=== PATIENT | female | born 1940 | race Caucasian/White ===

== ENCOUNTER 2017-01-30 15:21 | Inpatient (IN) | payer MEDICARE ==
[~2017-01-30] VITALS: Ht 172.7 cm; Wt 86.1 kg
[2017-02-11] MEDS ORDERED: GENTAMICIN SULFATE 80 MG/2 ML VIAL ONE (06:14)
[2017-02-11] MEDS ORDERED: ceFAZolin 2 GM PREMIX 50 ML IV SCH (06:45)
[2017-02-11] MEDS: POVIDONE IODINE 7.5% SCRUB 118 ML BOTTLE TOP SCH (06:45)
[2017-02-11] MEDS ORDERED: SODIUM CHLORID 0.9% 500 ML IV SCH (06:45)
[2017-02-11] MEDS ORDERED: METOPROLOL TARTRATE 25 MG TAB PO PRN (06:45)
[2017-02-11] MEDS ORDERED: INSULIN HUMAN REGULAR 1,000 UNITS/10 ML VIAL SQ PRN (06:45)
[2017-02-11] MEDS: LACTATED RINGER'S 1000 ML IV SCH (07:00)
[2017-02-11] MEDS ORDERED: CELE200C PO (07:02)
[2017-02-11] MEDS ORDERED: PREM0.3T2 PO (07:02)
[2017-02-11] MEDS ORDERED: DIAZ5 PO (07:02)
[2017-02-11] MEDS ORDERED: ASPI1TAB69 PO (07:02)
[2017-02-11] MEDS ORDERED: BYST5TAB2 PO (07:02)
[2017-02-11] MEDS ORDERED: SIMV20TA PO (07:02)
[2017-02-11] MEDS ORDERED: AMBI10TA PO (07:02)
[2017-02-11 07:04] VITALS: BP 153/86; PULSE 66; RESP 16; TEMP 97.7; O2SAT 98
[2017-02-11] MEDS ORDERED: ACETAMINOPHEN 1000 MG/100 ML VIAL IV ONE (07:45)
[2017-02-11] MEDS ORDERED: MIDAZOLAM HCL 5 MG/5 ML VIAL ONE (07:45)
[2017-02-11] MEDS ORDERED: FAMOTIDINE 20 MG/2 ML VIAL ONE (07:45)
[2017-02-11] MEDS ORDERED: fentaNYL CITRATE 250 MCG/5 ML AMP ONE (07:46)
[2017-02-11] MEDS ORDERED: DEXAMETHASONE SOD PHOS 4 MG/ML VIAL ONE (08:23)
[2017-02-11] MEDS ORDERED: BUPIVACAINE HCL PF 0.5% 30 ML VIAL NB ONE (08:41)
[2017-02-11] MEDS ORDERED: NEBIVOLOL 10 MG TAB PO ONE (11:45)
[2017-02-11] MEDS ORDERED: MORPHINE SULFATE 4 MG/ML INJ IV PUSH PRN (11:45)
[2017-02-11] MEDS ORDERED: SODIUM CHLORIDE 0.9% FLUSH 5 ML FLUSH IVF PRN (11:45)
[2017-02-11] MEDS ORDERED: HYDR-3516 PO (12:31)
--- NOTE | 2017-02-11 13:05 | RADRPT ---
EXAM DATE/TIME: 02/11/2017 11:31 [place] COMPARISON: No previous studies available for comparison. INDICATIONS: Post-Op right shoulder surgery. MEDICAL HISTORY: None. SURGICAL HISTORY: None. ENCOUNTER: Initial ACUITY: 1 day PAIN SCORE: 2/10 LOCATION: Anterior right shoulder. FINDINGS: There is a right shoulder prosthesis in place. This appears well placed. Skin chelsey are seen. Th ere does appear to be some remodeling of the glenoid. Soft tissue calcifications are present. CONCLUSION: Successful placement of a humeral prosthesis at the shoulder. Earl Kumar MD on February 11, 2017 at 12:57 Board Certified Radiologist. This report was verified electronically.
[2017-02-11] MEDS ORDERED: NEOSTIGMINE 3 MG/3 ML SYR IV ONE (13:33)
[2017-02-11] MEDS ORDERED: LACTATED RINGER'S 1000 ML INJ 1,000 ML IV ONE (13:33)
[2017-02-11] MEDS ORDERED: PROPOFOL 200 MG/20 ML AMP IV ONE (13:33)
[2017-02-11] MEDS ORDERED: ONDANSETRON HCL 4 MG/2 ML VIAL IV PUSH ONE (13:33)
--- NOTE | 2017-02-11 14:42 | EKG ---
Date Performed: 02/11/2017 Time Performed: 06:52:19 PTAGE: 76 years EKG: Sinus rhythm NORMAL ECG NO PREVIOUS TRACING DOCTOR: Sidney Shaver Interpretating Date/Time 02/11/2017 14:39:10
--- NOTE | 2017-02-11 15:45 | PD.CONS ---
[facility] By [facility] Henry Reason for Consult Medical management Primary Care Physician Non-Staff Diagnoses: (1) Osteoarthritis (2) Anxiety (3) Heart palpitations (4) Hyperlipidemia History of Present Illness 76-year-old female with a medical history significant for heart palpitations, hyperlipidemia, anxiety, osteoarthritis admitted to the hospital for right shoulder arthroplasty. The patient is seen in the recovery unit. She reports having significant problems with the right shoulder over the past 6 month. She has been using Lortab twice daily. Regarding heart palpitations. She reports this has been stable on Bystolic. It is reportedly related to her high stress environment in the [employer] business. She denies episode of shortness of breath or chest pain. She does have anxiety for which she takes Valium as needed. She denies depression. Review of Systems Musculoskeletal: COMPLAINS OF: Joint pain, Stiffness Past Family Social History Allergies: Coded Allergies: No Known Allergies (Unverified , 02/11/17) Past Medical History heart palpitations, hyperlipidemia, anxiety, osteoarthritis, insomnia. Past Surgical History Right ankle surgery after skiing accident. Right shoulder arthroplasty Reported Medications Reported Meds & Active Scripts Active Hydrocodone-Acetaminophen 5-325 mg Tab 1 Tab PO Q4H PRN Reported Valium (Diazepam) 5 Mg Tab 5 Mg PO BID PRN Celebrex (Celecoxib) 200 Mg Cap 200 Mg PO BID Aspirin 81 Mg Tabdr 81 Mg PO DAILY Prempro Blister Pack (Estrogens Conj/Medroxyprogest Acet) 0.3-1.5 Mg Tab 1 Tab PO DAILY Simvastatin 20 Mg Tab 20 Mg PO DAILY Bystolic (Nebivolol) 5 Mg Tab 5 Mg PO DAILY Ambien (Zolpidem Tartrate) 10 Mg Tab 10 Mg PO HS PRN Family History Mother from complications of lung cancer Father of a heart attack Social History Patient denies tobacco use. Admits to 1-2 glasses of wine daily. Denies illicit drugs. Physical Exam Vital Signs Vital Signs Date Time Temp Pulse Resp B/P Pulse Ox O2 Delivery O2 Flow Rate FiO2 02/11/17 14:15 84 22 91/60 97 Room Air 02/11/17 14:00 83 22 91/55 94 Room Air 02/11/17 13:45 78 22 89/63 95 Room Air 02/11/17 13:30 76 22 102/63 96 Room Air 02/11/17 13:15 72 22 97/65 94 Room Air 02/11/17 13:00 76 22 92/57 97 Room Air 02/11/17 12:45 74 22 95/67 95 Room Air 02/11/17 12:30 75 22 116/62 97 Room Air 02/11/17 12:15 70 22 110/56 97 Room Air 02/11/17 12:00 69 22 132/68 96 Room Air 02/11/17 11:45 83 22 108/75 95 Room Air 02/11/17 11:33 97.6 60 22 131/77 98 Simple Mask 6 02/11/17 07:04 97.7 66 16 153/86 98 Physical Exam GENERAL: This is a well-nourished, well-developed patient, in no apparent distress. SKIN: No rashes, ecchymoses or lesions. Cool and dry. HEAD: Atraumatic. Normocephalic. EYES: Pupils equal round and reactive. Extraocular motions intact. ENT: Nose without drainage or septal hematoma. Throat without erythema, tonsillar hypertrophy or exudate. Uvula midline. Airway patent. NECK: Trachea midline. No JVD or lymphadenopathy. Supple, nontender, no meningeal signs. CARDIOVASCULAR: Regular rate and rhythm without murmurs, gallops, or rubs. RESPIRATORY: Clear to auscultation. Breath sounds equal bilaterally. No wheezes , rales, or rhonchi. GASTROINTESTINAL: Abdomen soft, non-tender, nondistended. No hepato-splenomegaly , or palpable masses. No guarding. MUSCULOSKELETAL: Right shoulder is in the sling. Neurovascularly intact at the fingers. NEUROLOGICAL: Awake and alert. Cranial nerves II through XII intact. Motor and sensory grossly within normal limits. Five out of 5 muscle strength in all major muscle groups. Normal speech. Assessment and Plan Problem List: (1) Osteoarthritis ICD Code: M19.90 Status: Acute Plan: Right shoulder, status post total right shoulder arthroplasty. Postop care per orthopedics. - Patient requested pain medication prior to therapy. Lortab ordered to use prior to therapy. (2) Anxiety ICD Code: F41.9 Status: Acute Plan: Continue as needed Valium. (3) Heart palpitations ICD Code: R00.2 Status: Acute Plan: Controlled with Bystolic. Continue same dose. (4) Hyperlipidemia ICD Code: E78.5 Status: Acute Plan: Continue statin (5) Insomnia ICD Code: G47.00 Status: Acute Plan: Continue Ambien as needed at night. (6) Post menopausal syndrome ICD Code: N95.1 Status: Acute Plan: Continue home dose hormone supplements. Assessment and Plan Thank you for allowing me to participate in the care of Mrs. Byrnes. Will continue to follow. Analia Hicks MD Feb 11, 2017 15:45
[2017-02-11] MEDS ORDERED: ACETAMINOPHEN/HYDROcodone 325 MG/7.5 MG TAB PO PRN (16:00)
[2017-02-11] MEDS ORDERED: DIAZEPAM 5 MG TAB PO PRN (16:00)
[2017-02-11 18:35] VITALS: BP 83/54; PULSE 114; RESP 18; TEMP 96.9; O2SAT 96
[2017-02-11 19:05] VITALS: BP 101/66; PULSE 86; RESP 18; O2SAT 96
[2017-02-11 19:59] VITALS: O2SAT 96
[2017-02-11 20:00] VITALS: BP 104/85
[2017-02-11] MEDS: ACETAMINOPHEN/HYDROcodone 325 MG/5 MG TAB PO PRN (20:14)
[2017-02-11] MEDS ORDERED: ZOLPIDEM TARTRATE 10 MG TAB PO SCH (21:00)
[2017-02-11] MEDS: SODIUM CHLORIDE 0.9% FLUSH 5 ML FLUSH IVF SCH (21:36)
[2017-02-11 23:00] VITALS: BP 94/74; PULSE 97; RESP 18; TEMP 97; O2SAT 96
[2017-02-12] VITALS (16 sets, daily range): BP systolic 82–111; BP diastolic 45–69; PULSE 18–93; RESP 17–20; TEMP 96.8–99.3; O2SAT 94–97
[2017-02-12] MEDS: ACETAMINOPHEN/HYDROcodone 325 MG/5 MG TAB PO PRN ×3 (00:23→21:17)
[2017-02-12] MEDS ORDERED: KETOROLAC TROMETHAMINE 30 MG/ML (IVP) VIAL IV PUSH ONE (06:00)
[2017-02-12] MEDS ORDERED: SODIUM CHLORID 0.9% 500 ML INJ 500 ML IV ONE ×2 (06:00→11:15)
[2017-02-12] MEDS: LACTATED RINGER'S 1000 ML IV SCH (06:45)
[2017-02-12] MEDS: POVIDONE IODINE 7.5% SCRUB 118 ML BOTTLE TOP SCH (06:45)
[2017-02-12 06:53] LABS: AUTOMATED NEUTROPHIL # 2.6 TH/MM3 (1.8-7.7); BASOPHIL % 0.4 % (0.0-2.0); LYMPH % 29.3 % (9.0-44.0); LYMPHOCYTE # 1.3 TH/MM3 (1.0-4.8); MEAN CELL VOLUME 94.1 FL (80.0-100.0); MONO % 12.3 % (0.0-8.0); PLATELET COUNT 113 TH/MM3 (150-450); RED BLOOD COUNT 2.23 MIL/MM3 (4.00-5.30); RED CELL DISTRIBUTION WIDTH 14.3 % (11.6-17.2); WHITE BLOOD COUNT 4.4 TH/MM3 (4.0-11.0)
[2017-02-12 06:55] LABS: BICARBONATE 26.1 MEQ/L (21.0-32.0); POTASSIUM 3.7 MEQ/L (3.5-5.1)
[2017-02-12 06:58] LABS: HEMO FLAGS DIFF FINAL
[2017-02-12 07:01] LABS: HEMATOCRIT 20.9 % (35.0-46.0)
[2017-02-12] MEDS: SODIUM CHLORIDE 0.9% FLUSH 5 ML FLUSH IVF SCH ×2 (08:05→20:50)
[2017-02-12] MEDS: PRAVASTATIN SOD 40 MG TAB PO SCH (08:06)
[2017-02-12] MEDS ORDERED: NEBIVOLOL 5 MG TAB PO SCH (09:00)
[2017-02-12] MEDS ORDERED: CONJUGATED ESTROGENS 0.3 MG PO SCH (09:00)
[2017-02-12] MEDS ORDERED: NON-FORMULARY DRUG (Simvastatin 20 MG) PO SCH (09:00)
[2017-02-12] MEDS ORDERED: MEDROXYPROGESTERONE PO SCH (09:00)
--- NOTE | 2017-02-12 11:04 | HHI.PR ---
Subjective Remarks H&H dropped to 6.9/20.9 today. BP has been too low for pain meds. She complains of pain but denies lightheadedness, heart palpitations, SOB or chest pain. Objective Vitals Vital Signs Date Time Temp Pulse Resp B/P Pulse Ox O2 Delivery O2 Flow Rate FiO2 02/12/17 08:00 96 21 02/12/17 08:00 96.9 82 20 85/51 95 02/12/17 06:30 87/51 02/12/17 05:50 105/63 02/12/17 05:30 90/52 02/12/17 05:15 89/54 02/12/17 05:00 84/47 02/12/17 04:45 97.7 86 18 90/53 95 02/11/17 23:00 97.0 97 18 94/74 96 02/11/17 20:00 104/85 02/11/17 19:59 96 21 02/11/17 19:05 86 18 101/66 96 02/11/17 18:35 96.9 114 18 83/54 96 02/11/17 18:10 97.6 103 22 120/72 97 Room Air 02/11/17 17:30 103 22 120/72 97 Room Air 02/11/17 16:30 107 22 101/73 97 Room Air 02/11/17 15:30 102 22 111/72 98 Room Air 02/11/17 14:30 109 22 108/64 97 Room Air 02/11/17 14:15 84 22 91/60 97 Room Air 02/11/17 14:00 83 22 91/55 94 Room Air 02/11/17 13:45 78 22 89/63 95 Room Air 02/11/17 13:30 76 22 102/63 96 Room Air 02/11/17 13:15 72 22 97/65 94 Room Air 02/11/17 13:00 76 22 92/57 97 Room Air 02/11/17 12:45 74 22 95/67 95 Room Air 02/11/17 12:30 75 22 116/62 97 Room Air 02/11/17 12:15 70 22 110/56 97 Room Air 02/11/17 12:00 69 22 132/68 96 Room Air 02/11/17 11:45 83 22 108/75 95 Room Air 02/11/17 11:33 97.6 60 22 131/77 98 Simple Mask 6 I/O 02/11/17 02/11/17 02/11/17 02/12/17 02/12/17 02/12/17 07:00 15:00 23:00 07:00 15:00 23:00 Intake Total 2115 ml 525 ml 789 ml Output Total 600 ml 800 ml Balance 1515 ml -275 ml 789 ml Intake Oral 420 ml 240 ml IV Total 315 ml 105 ml 549 ml Other 1800 ml Output Urine Total 800 ml Estimated Blood Loss 600 ml # Voids 2 3 # Bowel Movements 0 0 Result Diagram: 02/12/17 0627 02/12/17 0627 Imaging Last Impressions Shoulder X-Ray 02/11/17 0000 Signed Impressions: Service Date/Time: Saturday, February 11, 2017 11:31 - CONCLUSION: Successful placement of a humeral prosthesis at the shoulder. Earl Kumar MD Objective Remarks GENERAL: This is a well-nourished, well-developed patient, in no apparent distress. CARDIOVASCULAR: Regular rate and rhythm without murmurs, gallops, or rubs. RESPIRATORY: Clear to auscultation. Breath sounds equal bilaterally. No wheezes , rales, or rhonchi. GASTROINTESTINAL: Abdomen soft, non-tender, nondistended. No hepato-splenomegaly , or palpable masses. No guarding. MUSCULOSKELETAL: Right shoulder is in the sling. Neurovascularly intact at the fingers. NEUROLOGICAL: Awake and alert. Normal speech. A/P Problem List: (1) Osteoarthritis ICD Code: M19.90 Status: Acute Plan: Right shoulder, status post total right shoulder arthroplasty. Postop care per orthopedics. -Pain control issue due to low blood pressure. Will order 1 dose Ofirmev one thousand milligrams 1. Will give her 500 cc bolus of normal saline to help with blood pressure. (2) Acute blood loss anemia ICD Code: D62 Status: Acute Plan: Postop. Unclear if she has some chronic anemia. No prior labs for comparison. - Will give 2 units of PRBC. Follow H&H in the morning. (3) Anxiety ICD Code: F41.9 Status: Acute Plan: Continue as needed Valium. (4) Heart palpitations ICD Code: R00.2 Status: Acute Plan: Well controlled. Hold Bystolic for now due to low blood pressure. Continue to monitor. (5) Hyperlipidemia ICD Code: E78.5 Status: Acute Plan: Continue statin (6) Hypotension ICD Code: I95.9 Status: Acute Plan: Probably related to dehydration and anemia. Will give bolus of normal saline. She is due to receive 2 units of PRBC. Follow blood pressure closely. (7) Insomnia ICD Code: G47.00 Status: Acute Plan: Continue Ambien as needed at night. (8) Post menopausal syndrome ICD Code: N95.1 Status: Acute Plan: Continue home dose hormone supplements. Analia Hicks MD Feb 12, 2017 11:04
[2017-02-12] MEDS ORDERED: ACETAMINOPHEN 1000 MG/100 ML VIAL IV ONE (11:15)
[2017-02-12] MEDS: D5-1/2 NS + KCL 20 MEQ INJ 1,000 ML IV SCH ×2 (15:00→23:44)
--- NOTE | 2017-02-12 15:48 | PD.ORT.PN ---
Subjective Post Op Day #: 1 Subjective Remarks Patient having some pain in shoulder since block has worn off. Also has been unable to use pain medications due to low blood pressure. Currently in bad and at bedside. Range of Motion Patient taken out of sling. Flexion to 30 degrees today. Right elbow motion is full. Objective Vitals Vital Signs Date Time Temp Pulse Resp B/P Pulse Ox O2 Delivery O2 Flow Rate FiO2 02/12/17 14:30 98.5 18 18 83/49 95 02/12/17 14:10 96.8 81 18 82/45 97 02/12/17 12:13 18 02/12/17 12:00 97.1 80 20 90/52 97 02/12/17 08:00 96 21 02/12/17 08:00 96.9 82 20 85/51 95 02/12/17 06:30 87/51 02/12/17 05:50 105/63 02/12/17 05:30 90/52 02/12/17 05:15 89/54 02/12/17 05:00 84/47 02/12/17 04:45 97.7 86 18 90/53 95 02/11/17 23:00 97.0 97 18 94/74 96 02/11/17 20:00 104/85 02/11/17 19:59 96 21 02/11/17 19:05 86 18 101/66 96 02/11/17 18:35 96.9 114 18 83/54 96 02/11/17 18:10 97.6 103 22 120/72 97 Room Air 02/11/17 17:30 103 22 120/72 97 Room Air 02/11/17 16:30 107 22 101/73 97 Room Air I/O 02/11/17 02/11/17 02/11/17 02/12/17 02/12/17 02/12/17 07:00 15:00 23:00 07:00 15:00 23:00 Intake Total 2115 ml 525 ml 789 ml Output Total 600 ml 800 ml Balance 1515 ml -275 ml 789 ml Intake Oral 420 ml 240 ml IV Total 315 ml 105 ml 549 ml Other 1800 ml Output Urine Total 800 ml Estimated Blood Loss 600 ml # Voids 2 3 # Bowel Movements 0 0 Result Diagram: 02/12/1762602/12/17626 Imaging Last Impressions Shoulder X-Ray 02/11/17 0000 Signed Impressions: Service Date/Time: Saturday, February 11, 2017 11:31 - CONCLUSION: Successful placement of a humeral prosthesis at the shoulder. Earl Kumar MD Objective Remarks Dressing changed today. Incision looks good. Motion limited due to pain. Assessment & Plan Ortho Post Op Day #: 1 Problem List: (1) Hypotension (2) Shoulder joint replacement status Assessment and Plan At this point the patient is receiving 2 units of packed cells. Will plan to increase activity and rehab when hypotension is better. Kaiser Henry MD Feb 12, 2017 15:48
[2017-02-13 03:30] VITALS: BP 123/72; PULSE 79; RESP 17; TEMP 97.7; O2SAT 96
[2017-02-13] MEDS: POVIDONE IODINE 7.5% SCRUB 118 ML BOTTLE TOP SCH (06:08)
[2017-02-13 07:09] LABS: HEMATOCRIT 24.1 % (35.0-46.0); MEAN CELL VOLUME 91.7 FL (80.0-100.0); MEAN CORPUSCULAR HEMOGLOBIN 32.3 PG (27.0-34.0); MEAN CORPUSCULAR HGB CONC 35.2 % (32.0-36.0); PLATELET COUNT 101 TH/MM3 (150-450); RED BLOOD COUNT 2.63 MIL/MM3 (4.00-5.30); RED CELL DISTRIBUTION WIDTH 14.8 % (11.6-17.2); REVIEW FLAG FINAL; WHITE BLOOD COUNT 4.8 TH/MM3 (4.0-11.0)
[2017-02-13 07:24] LABS: BICARBONATE 26.5 MEQ/L (21.0-32.0); POTASSIUM 3.6 MEQ/L (3.5-5.1)
[2017-02-13 08:00] VITALS: BP 108/69; PULSE 85; RESP 18; TEMP 98.5; O2SAT 94
[2017-02-13] MEDS: PRAVASTATIN SOD 40 MG TAB PO SCH (08:41)
[2017-02-13] MEDS: SODIUM CHLORIDE 0.9% FLUSH 5 ML FLUSH IVF SCH ×2 (08:41→19:51)
[2017-02-13] MEDS: ACETAMINOPHEN/HYDROcodone 325 MG/5 MG TAB PO PRN ×4 (08:41→21:31)
[2017-02-13] MEDS: D5-1/2 NS + KCL 20 MEQ INJ 1,000 ML IV SCH ×2 (08:51→17:34)
--- NOTE | 2017-02-13 10:04 | MP ---
cc: LEON BRAUN MD DATE OF SURGERY: 02/11/2017 ATTENDING PHYSICIAN/SURGEON Dr. Leon Braun. 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 PROCEDURE Right shoulder hemiarthroplasty. PROCEDURE IN DETAIL Informed consent was obtained, the patient was taken to the operating room and placed in the supine position on the operating table. She was administered general anesthesia by the anesthesiologist. Should had been given a gram of Ancef prior to the initiation of the operative procedure. She had also been given a shoulder block. With the patient in the beach-chair position, the shoulder had a U drape applied, shoulder was then prepped with Betadine soap followed by Betadine paint. Draping commenced with sterile towels about the field, a split sheet, stockinette was applied over the hand and forearm. This was wrapped with a Coban. An Ioban drape was cut and utilized to seal off the surgical region. A time-out was held and confirmed. At that time a marking pen was utilized to map out a deltopectoral incision and deltopectoral incision was then made. The skin and subcutaneous tissue was divided, bleeders were coagulated using the Bovie. The cephalic vein was identified and was retracted with the deltoid, this exposed the clavipectoral fascia, this was divided. The conjoined tendon was identified. The muscular portion was retracted medially to expose the subscapularis. There was significant scarring noted in this area. The anterior border of the subscapularis was identified and the artery and axillary nerve was identified. The incision was carried off of the greater tuberosity. There was extensive distortion of the anatomy. Careful dissection around the humeral head was performed and adhesions were divided. The head was removed in several pieces. The long head of the biceps was not identified as intact on evaluation of the shoulder. There was a stump that was still attached to the superior glenoid. The rotator cuff, however, was intact. The head was sized to the size 48. The canal was opened with a knitter hand and reamings were carried up to 9 mm. The 6 and then the 8-mm trial broach was placed with a 48 head. This was found to be satisfactory. At that time the cement was plugged distally with a number 2 cement plug. A batch of methacrylate bone cement was mixed. The [employer]vantage Porocoat standard stem size 8 was selected and the 48 x 21-mm Advantage Eccentric head was impacted onto the stem. The final prosthesis was then placed in approximately 20 degrees of retroversion. The cement was allowed to harden. Once the cement was hard a suture was placed in the posterior cuff. This was brought to the posterior fin on the prosthesis. Next, the anterior portion was brought to the anterior fin and the supraspinatus was brought to the posterior fin. All sutures were tightened. Stability appeared excellent. The deltopectoral ligament was then re-closed with 2-0 Vicryl. The skin was closed with 3-0 plain and skin chelsey. Xeroform, 4x4s, ABD and silk tape were applied to the patient's shoulder. The patient tolerated the procedure well and was then taken to the recovery room in stable condition. At the completion of the procedure, sponge count, instrument counts, needle counts were correct. Estimated blood loss was 100 ccs. MD RADHA Bob/BRANDY /12:11 PM /9:37 AM
[2017-02-13 11:36] VITALS: BP 98/67; PULSE 79; RESP 20; TEMP 96.3; O2SAT 94
--- NOTE | 2017-02-13 14:55 | HHI.PR ---
Subjective Remarks Patient reports feeling better today. Pain is better controlled. Participating with physical therapy. Blood pressure improved. Objective Vitals Vital Signs Date Time Temp Pulse Resp B/P Pulse Ox O2 Delivery O2 Flow Rate FiO2 02/13/17 11:36 96.3 79 20 98/67 94 02/13/17 08:00 98.5 85 18 108/69 94 02/13/17 03:30 97.7 79 17 123/72 96 02/12/17 23:40 99.1 81 18 111/66 95 02/12/17 21:03 99.3 84 18 105/62 94 02/12/17 20:30 98.7 93 17 90/62 96 02/12/17 17:56 18 02/12/17 17:45 97 21 02/12/17 17:08 97.5 78 18 103/59 97 02/12/17 16:30 97.3 78 20 99/69 96 I/O 02/12/17 02/12/17 02/12/17 02/13/17 02/13/17 02/13/17 07:00 15:00 23:00 07:00 15:00 23:00 Intake Total 789 ml 240 ml 480 ml 480 ml 1461 ml Balance 789 ml 240 ml 480 ml 480 ml 1461 ml Intake Oral 240 ml 240 ml 480 ml 480 ml IV Total 549 ml 1461 ml # Voids 3 3 2 3 # Bowel Movements 0 0 0 0 Result Diagram: 02/13/17 0558 02/13/17 0558 Objective Remarks GENERAL: This is a well-nourished, well-developed patient, in no apparent distress. CARDIOVASCULAR: Regular rate and rhythm without murmurs, gallops, or rubs. RESPIRATORY: Clear to auscultation. Breath sounds equal bilaterally. No wheezes , rales, or rhonchi. GASTROINTESTINAL: Abdomen soft, non-tender, nondistended. No hepato-splenomegaly , or palpable masses. No guarding. MUSCULOSKELETAL: Right shoulder is in the sling. Neurovascularly intact at the fingers. NEUROLOGICAL: Awake and alert. Normal speech. A/P Problem List: (1) Osteoarthritis ICD Code: M19.90 Status: Acute Plan: Right shoulder, status post total right shoulder arthroplasty. Postop care per orthopedics. -Pain control (2) Acute blood loss anemia ICD Code: D62 Status: Acute Plan: Postop. Unclear if she has some chronic anemia. No prior labs for comparison. -Responded well to 2 units of PRBC. No signs of active bleeding. (3) Anxiety ICD Code: F41.9 Status: Acute Plan: Continue as needed Valium. (4) Heart palpitations ICD Code: R00.2 Status: Acute Plan: Well controlled. Continue to Hold Bystolic for now due to low blood pressure. Continue to monitor. (5) Hyperlipidemia ICD Code: E78.5 Status: Acute Plan: Continue statin (6) Hypotension ICD Code: I95.9 Status: Acute Plan: Probably related to dehydration and anemia. Much improved. Continue with maintenance IV fluid until tomorrow. (7) Insomnia ICD Code: G47.00 Status: Acute Plan: Continue Ambien as needed at night. (8) Post menopausal syndrome ICD Code: N95.1 Status: Acute Plan: Continue home dose hormone supplements. Analia Hicks MD Feb 13, 2017 14:55
[2017-02-13 17:49] VITALS: BP 126/70; PULSE 83; RESP 18; TEMP 97.5; O2SAT 95
--- NOTE | 2017-02-13 18:54 | PD.ORT.PN ---
Subjective Post Op Day #: 2 Subjective Remarks Doing better now she can take some pain medication. She has had therapy. Objective Vitals Vital Signs Date Time Temp Pulse Resp B/P Pulse Ox O2 Delivery O2 Flow Rate FiO2 02/13/17 17:49 97.5 83 18 126/70 95 02/13/17 11:36 96.3 79 20 98/67 94 02/13/17 08:00 98.5 85 18 108/69 94 02/13/17 03:30 97.7 79 17 123/72 96 02/12/17 23:40 99.1 81 18 111/66 95 02/12/17 21:03 99.3 84 18 105/62 94 02/12/17 20:30 98.7 93 17 90/62 96 I/O 02/12/17 02/12/17 02/12/17 02/13/17 02/13/17 02/13/17 07:00 15:00 23:00 07:00 15:00 23:00 Intake Total 789 ml 240 ml 480 ml 480 ml 2181 ml Balance 789 ml 240 ml 480 ml 480 ml 2181 ml Intake Oral 240 ml 240 ml 480 ml 480 ml 720 ml IV Total 549 ml 1461 ml # Voids 3 3 2 3 3 # Bowel Movements 0 0 0 0 Result Diagram: 02/13/17 0558 02/13/17 0558 Imaging Last Impressions Shoulder X-Ray 02/11/17 0000 Signed Impressions: Service Date/Time: Saturday, February 11, 2017 11:31 - CONCLUSION: Successful placement of a humeral prosthesis at the shoulder. Earl Kumar MD Objective Remarks Dressing changed today. Incision looks good. Motion limited due to pain. Assessment & Plan Problem List: (1) Hypotension (2) Shoulder joint replacement status Assessment and Plan Patient improving. Anticipate Discharge to home tomorrow if medically ready.. Kaiser Henry MD Feb 13, 2017 18:54
--- NOTE | 2017-02-13 18:57 | HHI.FF ---
Face to Face Verification Diagnosis: (1) Shoulder joint replacement status Physical Therapy Other Occupational Therapy Right UE Range of Motion: Active ROM Nursing RN Days per Week: 3 x Week(s): 4 Nursing: Dressing changes Dressing Changes: Daily dressing change I have seen patient Carissa Byrnes on 02/13/17. My clinical findings support the need for the requested home health care services because: Deconditioned w/ increased weakness Limited ability to care for self I certify that my clinical findings support that this patient is homebound because: Post-op weakness Unsteady gait/balance Kaiser Henry MD Feb 13, 2017 18:57
[2017-02-13] MEDS: MAGNESIUM HYDROXIDE SUSP 30 ML CUP PO SCH (19:51)
[2017-02-13] MEDS: BISACODYL EC 5 MG TABEC PO SCH (19:51)
[2017-02-13 20:00] VITALS: BP 137/82; PULSE 82; RESP 20; TEMP 98.2; O2SAT 97
[2017-02-13] MEDS: ZOLPIDEM TARTRATE 5 MG TAB PO PRN (21:45)
[2017-02-14] VITALS: BP 135/80; PULSE 87; RESP 18; TEMP 97.8; O2SAT 96
[2017-02-14] MEDS: ACETAMINOPHEN/HYDROcodone 325 MG/5 MG TAB PO PRN (02:23)
[2017-02-14] MEDS: D5-1/2 NS + KCL 20 MEQ INJ 1,000 ML IV SCH (05:21)
[2017-02-14] MEDS: MAGNESIUM HYDROXIDE SUSP 30 ML CUP PO SCH ×2 (07:46→21:00)
[2017-02-14] MEDS: PRAVASTATIN SOD 40 MG TAB PO SCH (07:46)
[2017-02-14] MEDS: BISACODYL EC 5 MG TABEC PO SCH ×2 (07:46→19:53)
[2017-02-14] MEDS: ACETAMINOPHEN/HYDROcodone 325 MG/7.5 MG TAB PO PRN ×3 (07:47→19:53)
[2017-02-14 08:00] VITALS: BP 133/75; PULSE 78; RESP 18; TEMP 96.3; O2SAT 97
[2017-02-14] MEDS: SODIUM CHLORIDE 0.9% FLUSH 5 ML FLUSH IVF SCH ×2 (09:00→19:53)
[2017-02-14 12:00] VITALS: BP 99/55; PULSE 83; RESP 16; TEMP 96.9; O2SAT 94
--- NOTE | 2017-02-14 14:45 | HHI.PR ---
Subjective Remarks Pain is better controlled today. She reports feeling fatigued. Ambulated better with PT today. Objective Vitals Vital Signs Date Time Temp Pulse Resp B/P Pulse Ox O2 Delivery O2 Flow Rate FiO2 02/14/17 12:00 96.9 83 16 99/55 94 02/14/17 08:00 96.3 78 18 133/75 97 02/14/17 00:00 97.8 87 18 135/80 96 02/13/17 20:00 98.2 82 20 137/82 97 02/13/17 17:49 97.5 83 18 126/70 95 I/O 02/13/17 02/13/17 02/13/17 02/14/17 02/14/17 02/14/17 07:00 15:00 23:00 07:00 15:00 23:00 Intake Total 480 ml 2181 ml 480 ml 350 ml Balance 480 ml 2181 ml 480 ml 350 ml Intake Oral 480 ml 720 ml 480 ml 350 ml IV Total 1461 ml # Voids 3 3 3 2 # Bowel Movements 0 0 0 Result Diagram: 02/13/17 0558 02/13/17 0558 Objective Remarks GENERAL: This is a well-nourished, well-developed patient, in no apparent distress. CARDIOVASCULAR: Regular rate and rhythm without murmurs, gallops, or rubs. RESPIRATORY: Clear to auscultation. Breath sounds equal bilaterally. No wheezes , rales, or rhonchi. GASTROINTESTINAL: Abdomen soft, non-tender, nondistended. No hepato-splenomegaly , or palpable masses. No guarding. MUSCULOSKELETAL: Right shoulder is in the sling. Neurovascularly intact at the fingers. NEUROLOGICAL: Awake and alert. Normal speech. A/P Problem List: (1) Osteoarthritis ICD Code: M19.90 Status: Acute Plan: Right shoulder, status post total right shoulder arthroplasty. Postop care per orthopedics. -Pain control (2) Acute blood loss anemia ICD Code: D62 Status: Acute Plan: Postop. Unclear if she has some chronic anemia. No prior labs for comparison. -Responded well to 2 units of PRBC. No signs of active bleeding. (3) Anxiety ICD Code: F41.9 Status: Acute Plan: Continue as needed Valium. (4) Heart palpitations ICD Code: R00.2 Status: Acute Plan: Well controlled. Would continue to hold Bystolic due to borderline low blood pressure as she require pain medication. 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 (5) Hyperlipidemia ICD Code: E78.5 Status: Acute Plan: Continue statin (6) Hypotension ICD Code: I95.9 Status: Acute Plan: Probably related to dehydration. Pain medication contributing. Improved. She is asymptomatic, if her BP stays above 110/60, She could be discharged home to follow up outpatient. (7) Insomnia ICD Code: G47.00 Status: Acute Plan: Continue Ambien as needed at night. (8) Post menopausal syndrome ICD Code: N95.1 Status: Acute Plan: Continue home dose hormone supplements. Discharge Planning If BP stable and asymptomatic, can consider DC later today or tomorrow. Analia Hicks MD Feb 14, 2017 14:45
[2017-02-14] MEDS ORDERED: HYDR-3580 PO (15:36)
--- NOTE | 2017-02-14 15:42 | HHI.DS ---
Discharge Summary Admission Date Feb 11, 2017 at 06:04 Discharge Date: Feb 15, 2017 Admitting Diagnosis Osteoarthritis Right Shoulder- Severe- with Non-union of Proximal Humerus Fracture Diagnosis: (1) Hypotension (2) Shoulder joint replacement status Brief History This is a 76 year old female patient CBC/BMP: 02/13/17 0558 02/13/17 0558 Significant Findings Laboratory Tests Test 02/12/17 02/13/17 06:27 05:58 Red Blood Count 2.23 MIL/MM3 2.63 MIL/MM3 (4.00-5.30) (4.00-5.30) Hemoglobin 6.9 GM/DL 8.5 GM/DL (11.6-15.3) (11.6-15.3) Hematocrit 20.9 % 24.1 % (35.0-46.0) (35.0-46.0) Platelet Count 113 TH/MM3 101 TH/MM3 (150-450) (150-450) Monocytes (%) (Auto) 12.3 % (0.0-8.0) Estimat Glomerular Filtration 78 ML/MIN (>89) Rate Random Glucose 121 MG/DL 115 MG/DL (74-106) (74-106) Calcium Level 7.8 MG/DL 7.7 MG/DL (8.5-10.1) (8.5-10.1) Chloride Level 110 MEQ/L (98-107) Blood Urea Nitrogen 4 MG/DL (7-18) PE at Discharge Dressing changed today. Incision looks good. Motion limited due to pain. Hospital Course The patient had a problem with hypotension for the first day following surgery and she had two units of packed cells transfused. She has been up and is doing better. Anticipate Discharge to home tomorrow. Pt Condition on Discharge: Good Discharge Disposition: Disch w/ Home Health Serv Discharge Instructions Diet Instructions: As Tolerated, No Restrictions Activities You Can Perform: Weight Bearing as Kaiser Cardenas MD Feb 14, 2017 15:42
--- NOTE | 2017-02-14 15:45 | PD.ORT.PN ---
Subjective Post Op Day #: 3 Subjective Remarks Doing better but feels tired today and somewhat weak. Pain control is okay. She has had therapy. Objective Vitals Vital Signs Date Time Temp Pulse Resp B/P Pulse Ox O2 Delivery O2 Flow Rate FiO2 02/14/17 12:00 96.9 83 16 99/55 94 02/14/17 08:00 96.3 78 18 133/75 97 02/14/17 00:00 97.8 87 18 135/80 96 02/13/17 20:00 98.2 82 20 137/82 97 02/13/17 17:49 97.5 83 18 126/70 95 I/O 02/13/17 02/13/17 02/13/17 02/14/17 02/14/17 02/14/17 07:00 15:00 23:00 07:00 15:00 23:00 Intake Total 480 ml 2181 ml 480 ml 350 ml Balance 480 ml 2181 ml 480 ml 350 ml Intake Oral 480 ml 720 ml 480 ml 350 ml IV Total 1461 ml # Voids 3 3 3 2 # Bowel Movements 0 0 0 Result Diagram: 02/13/17 0558 02/13/17 0558 Imaging Last Impressions Shoulder X-Ray 02/11/17 0000 Signed Impressions: Service Date/Time: Saturday, February 11, 2017 11:31 - CONCLUSION: Successful placement of a humeral prosthesis at the shoulder. Earl Kumar MD Objective Remarks Dressing to be changed later today. Motion limited due to pain. Assessment & Plan Ortho Post Op Day #: 3 Problem List: (1) Hypotension (2) Shoulder joint replacement status Assessment and Plan Patient improving. Anticipate Discharge to home tomorrow if medically ready. Dr. Watters covering for the undersigned.. Kaiser Henry MD Feb 14, 2017 15:45
[2017-02-14 16:00] VITALS: BP 110/61; PULSE 72; RESP 18; TEMP 98.4; O2SAT 96
[2017-02-14 20:00] VITALS: BP 116/63; PULSE 80; RESP 18; TEMP 96.8; O2SAT 97
[2017-02-14] MEDS: ZOLPIDEM TARTRATE 5 MG TAB PO PRN (21:41)
[2017-02-15] VITALS: BP 110/62; PULSE 81; RESP 20; TEMP 97.1; O2SAT 100
[2017-02-15] MEDS: ACETAMINOPHEN/HYDROcodone 325 MG/7.5 MG TAB PO PRN ×2 (02:05→08:07)
[2017-02-15 08:00] VITALS: BP 131/71; PULSE 70; RESP 16; TEMP 96.9; O2SAT 97
[2017-02-15] MEDS: PRAVASTATIN SOD 40 MG TAB PO SCH (08:07)
[2017-02-15] MEDS: BISACODYL EC 5 MG TABEC PO SCH (08:15)
[2017-02-15] MEDS: SODIUM CHLORIDE 0.9% FLUSH 5 ML FLUSH IVF SCH (08:15)
[2017-02-15] MEDS: MAGNESIUM HYDROXIDE SUSP 30 ML CUP PO SCH (08:16)
[2017-02-15 09:07] VITALS: RESP 18
--- NOTE | 2017-02-15 15:08 | HHI.PR ---
Subjective Remarks Patient seen earlier today around 10 AM. She reports feeling much better. She has been ambulating better. We discussed stopping Bystolic for now and follow up outpatient with her primary care physician. Objective Vitals Vital Signs Date Time Temp Pulse Resp B/P Pulse Ox O2 Delivery O2 Flow Rate FiO2 02/15/17 09:07 18 02/15/17 08:00 96.9 70 16 131/71 97 02/15/17 00:00 97.1 81 20 110/62 100 02/14/17 20:00 96.8 80 18 116/63 97 02/14/17 18:49 Room Air 02/14/17 16:00 98.4 72 18 110/61 96 I/O 02/14/17 02/14/17 02/14/17 02/15/17 02/15/17 02/15/17 07:00 15:00 23:00 07:00 15:00 23:00 Intake Total 350 ml 720 ml 780 ml 480 ml Output Total 800 ml Balance 350 ml -80 ml 780 ml 480 ml Intake Oral 350 ml 720 ml 780 ml 480 ml Output Urine Total 800 ml # Voids 2 4 1 3 # Bowel Movements 0 2 0 Result Diagram: 02/13/17 0558 02/13/17 0558 Objective Remarks GENERAL: This is a well-nourished, well-developed patient, in no apparent distress. CARDIOVASCULAR: Regular rate and rhythm without murmurs, gallops, or rubs. RESPIRATORY: Clear to auscultation. Breath sounds equal bilaterally. No wheezes , rales, or rhonchi. GASTROINTESTINAL: Abdomen soft, non-tender, nondistended. No hepato-splenomegaly , or palpable masses. No guarding. MUSCULOSKELETAL: Right shoulder is in the sling. Neurovascularly intact at the fingers. NEUROLOGICAL: Awake and alert. Normal speech. A/P Problem List: (1) Osteoarthritis ICD Code: M19.90 Status: Acute Plan: Right shoulder, status post total right shoulder arthroplasty. Postop care per orthopedics. -Pain control (2) Acute blood loss anemia ICD Code: D62 Status: Acute Plan: Postop. Unclear if she has some chronic anemia. No prior labs for comparison. -Responded well to 2 units of PRBC. No signs of active bleeding. (3) Anxiety ICD Code: F41.9 Status: Acute Plan: Continue as needed Valium. (4) Heart palpitations ICD Code: R00.2 Status: Acute Plan: Well controlled with no medications. 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 (5) Hyperlipidemia ICD Code: E78.5 Status: Acute Plan: Continue statin (6) Hypotension ICD Code: I95.9 Status: Acute Plan: Resolved with IV hydration. (7) Insomnia ICD Code: G47.00 Status: Acute Plan: Continue Ambien as needed at night. (8) Post menopausal syndrome ICD Code: N95.1 Status: Acute Plan: Continue home dose hormone supplements. Discharge Planning Hospitalist clear for discharge Analia Hicks MD Feb 15, 2017 15:08
== END 2017-02-15 12:39 | disposition home health service (06) | DRG 483 ==
LOC: HSDI 02-11 06:04 → N06A 02-11 18:20
PROVIDERS: ADMIT Orthopaedic Surgery; ATTEND Orthopaedic Surgery
PROC: 3E0T3CZ (ICD-10-PCS; 2017-02-11)
PROC: 0RRJ0J6 Replacement of Right Shoulder Joint with Synthetic Substitute, Humeral Surface, Open Approach (ICD-10-PCS; principal; 2017-02-11 08:40)
PROC: 30233N1 Transfusion of Nonautologous Red Blood Cells into Peripheral Vein, Percutaneous Approach (ICD-10-PCS; 2017-02-12)
DX: M19.011 Primary osteoarthritis, right shoulder (principal); I95.9 Hypotension, unspecified; D62 Acute posthemorrhagic anemia; S42.201K Unspecified fracture of upper end of right humerus, subsequent encounter for fracture with nonunion; E78.5 Hyperlipidemia, unspecified; F41.9 Anxiety disorder, unspecified; R00.2 Palpitations; G47.00 Insomnia, unspecified; N95.1 Menopausal and female climacteric states; X58.XXXD Exposure to other specified factors, subsequent encounter
CPT/HCPCS: 36430; 73030; 80048; 85025; 85027; 86850; 86890; 86900; 86901; 86920; 88304; 88305; 88311; 93005; C1776; J0131; J0690; J1100; J1580; J1885; J2250; J2270; J2405; J2710; J3010; J3480; J7040; J7120; P9016